=== PATIENT | female | born 1980 | race Caucasian/White ===

== ENCOUNTER 2018-04-15 08:27 | Emergency (ER) | payer MEDICAID, OTHER ==
[2018-04-15 08:42] VITALS: BP 103/68
--- NOTE | 2018-04-15 08:59 | UC ---
General HPI - HPI Summary HPI Summary: Vertigo has been episodic since yesterday. Triggerred by certain positions and movements. No fever, pain, hearing loss, tinnitus. She has had this in the past and this is similar. No other focal neuro deficits. - History of Current Complaint Chief Complaint: UCDizziness Stated Complaint: VERTIGO Time Seen by Provider: 04/15/18 08:47 Hx Obtained From: Patient Hx Last Menstrual Period: "just a couple of weeks ago" Onset/Duration: Gradual Onset, Lasting Hours Timing: Intermittent Episodes Lasting: - 10 min. Onset Severity: Moderate Current Severity: None Pain Intensity: 0 Associated Signs & Symptoms: Positive: Dizziness, Nausea. Negative: Abdominal Pain, Diaphoresis, Fever, Headache, Weakness - Allergy/Home Medications Allergies/Adverse Reactions: Allergies Allergy/AdvReac Type Severity Reaction Status Date / Time No Known Allergies Allergy Verified 09/24/16 12:53 PMH/Surg Hx/FS Hx/Imm Hx Previously Healthy: No - vertigo. Other History Of: Negative For: Hepatitis B - Surgical History Surgical History: None Surgery Procedure, Year, and Place: denies - Family History Known Family History: Positive: None Negative: Renal Disease - Social History Lives: With Family Alcohol Use: Occasionally Substance Use Type: None Smoking Status (MU): Current Some Day Smoker Type: Cigarettes Amount Used/How Often: occasional use Length of Time of Smoking/Using Tobacco: started ~ age 21 Review of Systems ENT: Ear Ache - some pressure in the right ear without pain. All Other Systems Reviewed And Are Negative: Yes Physical Exam Triage Information Reviewed: Yes Appearance: Well-Appearing, No Pain Distress, Well-Nourished Vital Signs: Initial Vital Signs Temp 98.3 F 04/15/18 08:36 Pulse 90 04/15/18 08:36 Resp 16 04/15/18 08:36 BP 103/68 04/15/18 08:36 Pulse Ox 100 04/15/18 08:36 Vital Signs Reviewed: Yes Eyes: Positive: Conjunctiva Clear. Negative: Conjunctiva Inflamed ENT: Positive: Hearing grossly normal, Pharynx normal, TMs normal, Uvula midline. Negative: Pharyngeal erythema, Nasal congestion, Nasal drainage, TM bulging, TM dull, TM red, Tonsillar swelling, Tonsillar exudate, Trismus, Muffled voice, Hoarse voice, Sinus tenderness Neck: Positive: Supple, Nontender, No Lymphadenopathy Respiratory: Positive: Lungs clear, Normal breath sounds, No respiratory distress, No accessory muscle use. Negative: Respiratory distress, Decreased breath sounds, Accessory muscle use, Crackles, Rhonchi, Stridor, Wheezing Cardiovascular: Positive: No Murmur, Pulses Normal, Brisk Capillary Refill Abdomen Description: Positive: No Organomegaly, Soft. Negative: Distended, Guarding Neurological Exam: Other - CN III-XII intact. Neg pronator drift. Neg rhomberg. Narrow based gait. Finger to nose intact. Neurological: Positive: Alert, Muscle Tone Normal. Negative: Fatigued, Lethargic, Abnormal Muscle Tone Psychological: Positive: Age Appropriate Behavior Skin: Negative: rashes Course/Dx - Differential Dx - Multi-Symptom Differential Diagnoses: Cardiac Ischemia, CVA, Metabolic Abnormality, Sepsis, Urinary Tract Infection Provider Diagnoses: vertigo Discharge - Sign-Out/Discharge Documenting (check all that apply): Patient Departure - Discharge Plan Condition: Good Disposition: HOME Prescriptions: Meclizine TAB* [Antivert 12.5 TAB*] 25 mg PO TID PRN #30 tab PRN Reason: Vertigo Patient Education Materials: Vertigo (ED) Referrals: No Primary Care Phys,NOPCP [Primary Care Provider] - Hardy Crabtree MD [Medical Doctor] - - Billing Disposition and Condition Condition: GOOD Disposition: Home
== END 2018-04-15 09:01 | disposition home or self-care (01) ==
LOC: UCCORT 08:27
DX: R42 Dizziness and giddiness (principal); F17.210 Nicotine dependence, cigarettes, uncomplicated
CPT/HCPCS: 99212; G0463